=== PATIENT | female | born 2000 | race Two or more races ===

== ENCOUNTER 2022-02-09 00:59 | Emergency (ER) | payer OTHER ==
[2022-02-09 01:32] LABS: BASOPHIL 0.6 % (0-2); EOSINOPHIL 0.4 % (0-5); HCT 42.7 % (37.0-47.0); HGB 13.8 g/dl (12.5-16.0); LYMPHOCYTE 37.5 % (15-48); MCH 28.8 pg (25.0-31.0); MCHC 32.3 g/dL (32.0-36.0); MONOCYTE 7.1 % (0-12); MPV 9.5 fL (6.0-9.5); NEUTROPHIL 53.8 % (41-80); NRBC 0; PLT 394 K/uL (150-400); RDW 11.9 % (11.5-14.0); WBC 15.7 K/uL (4.0-10.5)
[2022-02-09 01:41] LABS: BUN/CREAT RATIO (CALC) 30.1 RATIO; CREATININE 0.73 mg/dL (0.51-0.95); POTASSIUM 3.8 mmol/L (3.5-5.1)
[2022-02-09 04:02] LABS: HCT 41.9 % (37.0-47.0); HGB 13.7 g/dL (12.5-16.0)
== END 2022-02-09 04:50 | disposition other institution (70) ==
LOC: FER 00:59
PROVIDERS: Internal Medicine
DX: S42.302A Unspecified fracture of shaft of humerus, left arm, initial encounter for closed fracture (principal); R00.0 Tachycardia, unspecified; V47.6XXA Car passenger injured in collision with fixed or stationary object in traffic accident, initial encounter
CPT/HCPCS: 36415; 70450; 70486; 71260; 72125; 72128; 72131; 73020; 73060; 80048; 85014; 85018; 85025; J1170; J2405; Q9967